=== PATIENT | male | born 1950 | race Caucasian/White ===

== ENCOUNTER 2018-08-14 07:33 | Inpatient (IN) | payer OTHER ==
[~2018-08-14] VITALS: Ht 182.9 cm; Wt 159.4 kg
[2018-08-14 07:45] VITALS: Ht 182.9 cm; Wt 159.4 kg
[2018-08-14 08:33] LABS: BASOPHIL % 0.7 % (0-2); PLATELET COUNT 217 x10^3mcL (130-400); RED CELL DISTRIBUTION WIDTH 13.9 % (11.5-14.5)
[2018-08-14 08:55] LABS: CALCIUM 8.7 mg/dL (8.5-10.1); CARBON DIOXIDE 25.2 mmol/L (21-32); CHLORIDE SERUM 102 mmol/L (98-107); CREATININE SERUM 0.9 mg/dL (0.7-1.3); GFR1 > 60 mL/min; GLUCOSE SERUM 126 mg/dL (74-106); POTASSIUM SERUM 3.9 mmol/L (3.5-5.1); SODIUM SERUM 136 mmol/L (136-145)
[2018-08-14 08:59] LABS: ALBUMIN 3.4 g/dL (3.4-5.0); ALKALINE PHOSPHATASE 66 U/L (46-116); ALT/SGPT 27 U/L (16-63); AST/SGOT 19 U/L (15-37); BILIRUBIN TOTAL 0.4 mg/dL (0.20-1.00); CHOLESTEROL 158 mg/dL (<200); HDL CHOLESTEROL 51 mg/dL (40-60); PHOSPHOROUS 2.8 mg/dL (2.5-4.9); TOTAL PROTEIN, SERUM 7.2 g/dL (6.4-8.2); URIC ACID 5.2 mg/dL (3.5-7.2)
[2018-08-14 10:51] LABS: microscopic required? NO
[2018-08-14 10:59] LABS: CHOLESTEROL/HDL RATIO 3.2; MAGNESIUM 1.9 mg/dL (1.8-2.4)
[2018-08-14 11:09] LABS: FREE T4 1.01 ng/dL (0.76-1.46); FREE THYROXINE INDEX 2.9 ug/dL (1.4-4.5); T4(THYROXINE) 8.8 ug/dL (4.7-13.3)
[2018-08-14 11:23] LABS: urine erythrocyte NEGATIVE (NEGATIVE)
[2018-08-14 12:30] LABS: T3 TOTAL 1.31 ng/mL
[2018-08-14 12:52] VITALS: BP 142/58
[2018-08-14 16:37] VITALS: BP 133/83
[2018-08-14 19:40] VITALS: BP 118/52
[2018-08-15 05:51] VITALS: BP 112/55
[2018-08-15 07:10] LABS: CALCIUM 8.8 mg/dL (8.5-10.1); CARBON DIOXIDE 26.6 mmol/L (21-32); CHLORIDE SERUM 104 mmol/L (98-107); CREATININE SERUM 0.9 mg/dL (0.7-1.3); GFR1 > 60 mL/min; GLUCOSE SERUM 120 mg/dL (74-106); MAGNESIUM 2.1 mg/dL (1.8-2.4); PHOSPHOROUS 3.4 mg/dL (2.5-4.9); POTASSIUM SERUM 4.2 mmol/L (3.5-5.1); SODIUM SERUM 137 mmol/L (136-145)
[2018-08-15 07:52] LABS: BASOPHIL % 0.6 % (0-2); PLATELET COUNT 204 x10^3mcL (130-400); RED CELL DISTRIBUTION WIDTH 14.7 % (11.5-14.5)
[2018-08-15 09:08] VITALS: BP 128/70
[2018-08-15 13:02] VITALS: BP 136/66
[2018-08-15 17:38] VITALS: BP 128/69
[2018-08-15 20:58] VITALS: BP 113/77
[2018-08-16 05:26] VITALS: BP 136/76
[2018-08-16 07:03] LABS: BASOPHIL % 0.5 % (0-2); PLATELET COUNT 210 x10^3mcL (130-400); RED CELL DISTRIBUTION WIDTH 14.6 % (11.5-14.5)
[2018-08-16 07:19] LABS: CALCIUM 8.9 mg/dL (8.5-10.1); CARBON DIOXIDE 28.2 mmol/L (21-32); CHLORIDE SERUM 103 mmol/L (98-107); GFR1 > 60 mL/min; GLUCOSE SERUM 110 mg/dL (74-106); MAGNESIUM 2.2 mg/dL (1.8-2.4); POTASSIUM SERUM 4.1 mmol/L (3.5-5.1); SODIUM SERUM 139 mmol/L (136-145)
[2018-08-16 08:41] VITALS: BP 109/58
[2018-08-16] MEDS ORDERED: ECO81 PO (10:51)
[2018-08-16] MEDS ORDERED: ATORVASTATIN CA40 M1 PO (10:51)
[2018-08-16] MEDS ORDERED: BG FS (10:53)
[2018-08-16] MEDS ORDERED: TYL325 PO (10:53)
[2018-08-16] MEDS ORDERED: HUMULIN R100 U/1 M1 SC (10:54)
[2018-08-16] MEDS ORDERED: DEXPF IV (10:54)
[2018-08-16] MEDS ORDERED: ZOFI IV (10:54)
[2018-08-16] MEDS ORDERED: HEP5I SC (10:54)
[2018-08-16 11:18] VITALS: BP 109/58
== END 2018-08-16 13:25 | disposition short-term general hospital (02) | DRG 65 ==
LOC: ED 07:33 → DU 10:03
PROVIDERS: Emergency Medicine; Internal Medicine
DX: I63.9 Cerebral infarction, unspecified (principal); Z68.41 Body mass index [BMI] 40.0-44.9, adult; E11.65 Type 2 diabetes mellitus with hyperglycemia; E66.01 Morbid (severe) obesity due to excess calories; H53.461 Homonymous bilateral field defects, right side; Z86.73 Personal history of transient ischemic attack (TIA), and cerebral infarction without residual deficits
CPT/HCPCS: 82962; 83880; 84439; J1644; J1885; Q0092

== ENCOUNTER → 2019-05-17 | Day surgery (SDC) | payer OTHER ==
[~2019-05-17] VITALS: Ht 182.9 cm; Wt 158.8 kg
[~2019-05-17] MED LIST: ATORVASTATIN CA40 M1 PO; BG FS; DEXPF IV; ECO81 PO; HEP5I SC; HUMULIN R100 U/1 M1 SC; TYL325 PO; ZOFI IV
[2019-05-17 09:13] VITALS: BP 122/68
[2019-05-17 10:38] VITALS: BP 100/53
== END | disposition home or self-care (01) ==
LOC: GI 09:00 → OR 12:00 → GI 12:00
DX: R19.5 Other fecal abnormalities (principal); K62.5 Hemorrhage of anus and rectum; K57.30 Diverticulosis of large intestine without perforation or abscess without bleeding; J45.909 Unspecified asthma, uncomplicated; E11.9 Type 2 diabetes mellitus without complications; Z90.49 Acquired absence of other specified parts of digestive tract; Z88.5 Allergy status to narcotic agent; Z79.84 Long term (current) use of oral hypoglycemic drugs; Z79.01 Long term (current) use of anticoagulants; Z79.899 Other long term (current) drug therapy; Z86.73 Personal history of transient ischemic attack (TIA), and cerebral infarction without residual deficits; Z98.890 Other specified postprocedural states
CPT/HCPCS: 45378; J1200; J1610; J2250; J2310; J3010; J3490

== ENCOUNTER 2019-09-11 11:55 | Inpatient (IN) | payer OTHER ==
[~2019-09-11] VITALS: Ht 182.9 cm; Wt 154.2 kg
[2019-09-11 12:09] VITALS: Ht 182.9 cm; Wt 154.2 kg
--- NOTE | 2019-09-11 12:25 | NUR ---
PT HERE BY AMBULANCE FROM HOME, PT STATES FELL AT 5AM DENIES HITTING HEAD. PT DENIES LOC, STATES FELT WEAK THIS AM AND FRIEND CALLED EMS TO BRING HIM TO HOSPITAL. BT WALKS BY CANE. DENIES ABD PAIN, STATES DRY COUGH STARTED MORNING. CLEAR BREATH SOUNDS NOTED
--- NOTE | 2019-09-11 12:53 | NUR ---
AWAITING LABS FOR BLOOD CULTURE TO BE DRAWN BEFORE ABX ADMINISTRATION
[2019-09-11 13:19] LABS: PLATELET COUNT 179 x10^3mcL (130-400)
--- NOTE | 2019-09-11 13:19 | NUR ---
PT GIVEN URINAL FOR SPECIMEN
[2019-09-11 13:35] LABS: CALCIUM 8.9 mg/dL (8.5-10.1); CARBON DIOXIDE 26.8 mmol/L (21-32); CHLORIDE SERUM 99 mmol/L (98-107); CREATININE SERUM 1.2 mg/dL (0.7-1.3); GFR1 > 60 mL/min; GLUCOSE SERUM 121 mg/dL (74-106); POTASSIUM SERUM 3.8 mmol/L (3.5-5.1); SODIUM SERUM 136 mmol/L (136-145)
[2019-09-11 13:43] LABS: RED CELL DISTRIBUTION WIDTH 14.6 % (11.5-14.5)
[2019-09-11 14:43] LABS: UA SPECIFIC GRAVITY 1.015 (1.005-1.035); microscopic required? YES; urine erythrocyte 2+ (NEGATIVE)
[2019-09-11 14:46] LABS: BAND NEUTROPHIL 3 % (0-10); BASOPHIL 0 % (0-2); MONOCYTE 5 % (0-7); SEGMENTED NEUTROPHILS 88 % (37-75)
[2019-09-11 14:47] LABS: rbc morphology (normal/abnorm) ABNORMAL (NORMAL)
[2019-09-11] MEDS ORDERED: METFORMIN HYDR500 M1 (15:44)
--- NOTE | 2019-09-11 15:44 | NUR ---
PT STATES METFORMIN USE AT HOME BUT OTHER MEDS UNKNOWN
--- NOTE | 2019-09-11 15:44 | NUR ---
PT GIVEN SANDWICH PER DR DELGADO TO GIVE. BROTHER AT BEDSIDE. PT ANSWERING QUESTIONS TO MED STUDENTS. AWAKE, ALERT AND ORIENTED, TALKING FULL SENTENCES
--- NOTE | 2019-09-11 16:00 | NUR ---
REPORT GIVEN TO GILSON ADAMS TO RESUME CARE OF PT
[2019-09-11 16:01] LABS: MAGNESIUM 1.8 mg/dL (1.8-2.4); PHOSPHOROUS 2.2 mg/dL (2.5-4.9)
--- NOTE | 2019-09-11 16:34 | NUR ---
RECEIVED PT VIA GURNEY FROM E/D, ACCOMPANIED BY RN AND 2 TRANSPORTERS. 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 ON TELE # 6, ST, HR 101, DENIES CHEST PAIN OR DISCOMFORT AT THIS TIME. NEVAEH RADIAL AND PEDAL PULSES PRESENT, LLE NON-PITTING EDEMA +3 AND RUBOR THAT RUNS FROM TOP OF ANKLE JOINT TO 3/4 UP OF THOMAS, SALES REPRESENTATIVE ADVERTISING, CAP REFILL < 3 SECS, SCD BY BEDSIDE. LUNGS CTAB, CHEST RISING EVENLY, R/A, 98%, C/O DRY COUGH. UA +FEW BACTERIA AND BLOOD, C/O DARK YELLOW URINE, DENIES DYSURIA. GENERALIZED WEAKNESS, AMB W/ CANE @ BASELINE, BEDBOUND @ THIS TIME, FELL 09/11/19, FALL RISK PROTOCOL IN PLACE. ALSO NOTED EXCESSIVE MOISTURE AND DISCOLORATION TO NEVAEH ABD FOLDS, APPLIED ZNO FOR SKIN MGMT. IV SITE RH 22G, CDI. ORIENTED PT TO ROOM, BED CONTROLS, CALL LIGHT SYSTEM. SIDE RAILS UP X 2, BED IN LOW POSITION. WILL ENDORSE TO ANGIE TEJADA.
[2019-09-11 17:00] LABS: CHOLESTEROL/HDL RATIO 1.6
[2019-09-11 17:16] VITALS: BP 132/62
[2019-09-11] MEDS ORDERED: LIPI10 PO (17:48)
[2019-09-11] MEDS ORDERED: FERROUS SULFAT325 M2 PO (17:48)
[2019-09-11] MEDS ORDERED: ELIQUIS5 MG PO (17:48)
[2019-09-11] MEDS ORDERED: METFORMIN HYDR500 M1 PO (17:49)
[2019-09-11 17:54] VITALS: BP 132/62
[2019-09-11 18:17] LABS: AMPHETAMINE QUAL UR NONE DETECTED (See below)
--- NOTE | 2019-09-11 18:30 | NUR ---
ALL ORDERS REVIEWED, IMPLEMENTED, AND CARRIED OUT. PATIENT IN STABLE CONDITION. NO SIGNS OF DISTRESS. WILL ENDORSE TO UTILITY AIRCREWMAN RN.
--- NOTE | 2019-09-11 19:35 | NUR ---
RECEIVED PT RESTING IN BED, PT OBESE. AOX4, DENIES WALKER/DIZZINESS. PT TELE # 6, SR, DENIES CP. PT WITH 2+ PITTING EDEMA BLE, L>R, ERYTHEMA NOTED. LLE TRACED PT MONITOR FOR SPREADING. ELEVATED ON PILLOW. PT DENIES KNOWING HOW LONG THIS HAS BEEN GOING ON. PT REPORTS RESIDUAL BLINDNESS. RESP EVEN AND UNLABORED ON RA, DENIES SOB. ABD SOFT, ROUND, DENIES ABD PAIN. BSC AT BEDSIDE IN CASE PT NEEDS IT. PT S/P FALL AT HOME, DENIES HITTING HEAD. PT WITH URINAL AT BEDSIDE. GENERALIZED WEAKNESS, AMB W/ CANE AT BEDSIDE. DENIES PAIN AT THIS TIME. IV SITE TO THE RT HAND PATENT, NO REDNESS, SWELLING OR PAIN NOTED. PT TOLERATING ANTIBIOTICS WELL. CALL LIGHT WITHIN REACH, BED IN LOWEST POSITION, WILL CONTINUE TO MONITOR.
[2019-09-11 19:45] VITALS: BP 97/51
--- NOTE | 2019-09-11 20:30 | NUR ---
COLLABORATED WITH RESIDENT IN REGARDS TO PT ORDERED TO RECEIVE FLU AND PNA VACCINE ALTHOUGH PT DX SEVERE SEPSIS AND WBC'S SIGNIFICANTLY ELEVATED W/ FEVER, HYPOTENSION, TACHYCARDIA. PER RESIDENT, WILL PUT ORDER IN FOR INFLUENZA A & B LAB AND IF PT IS (+), TREATMENT WILL BEGIN. INFORMED PT IT IS NOT RECOMMENDED TO RECEIVE THE VACCINES WHEN SICK, PT VERBALIZES UNDESTANDING AND INFORMED HIM HE CAN REQUEST UPON DISCHARGE. PT VERBALIZES UNDERSTANDING AND WILL ENDORSE TO DAYSHIFT NURSE. CALL LIGHT WITHIN REACH, BED IN LOWEST POSITION, WILL CONTINUE TO MONITOR.
[2019-09-11 23:20] VITALS: BP 122/53
--- NOTE | 2019-09-12 | NUR ---
INQUIRED WITH RESIDENT IN REGARDS TO PT DIET ORDERED TO BEGIN 09/12/19 FOR DINNER, WELL IT WAS ORDERED A "CAUTION TRAY", PER RESIDENT WILL COLLABORATE WITH RONALD MANAGER ENVIRONMENTAL IN REGARDS TO THE NEED FOR THIS ORDER OR IF PT CAN HAVE NORMAL BREAKFAST. ALSO, PT D-DIMER ELEVATED= 802, NO MENTION IN THE H & P, PER RESIDENT, WILL INQUIRE WITH RONALD MANAGER ENVIRONMENTAL IF ANY OTHER TESTING IS NEEDED FOR THIS FINDING. WILL ENDORSE TO DAYSORFT NURSE.
[2019-09-12 06:34] LABS: PLATELET COUNT 161 x10^3mcL (130-400)
[2019-09-12 06:43] LABS: BASOPHIL % 0 % (0-2); RED CELL DISTRIBUTION WIDTH 15.3 % (11.5-14.5)
[2019-09-12 06:49] VITALS: BP 135/58
[2019-09-12 06:51] LABS: CALCIUM 8.3 mg/dL (8.5-10.1); CARBON DIOXIDE 24.6 mmol/L (21-32); CHLORIDE SERUM 101 mmol/L (98-107); CREATININE SERUM 1.2 mg/dL (0.7-1.3); GFR1 > 60 mL/min; GLUCOSE SERUM 118 mg/dL (74-106); POTASSIUM SERUM 3.6 mmol/L (3.5-5.1); SODIUM SERUM 135 mmol/L (136-145)
--- NOTE | 2019-09-12 07:10 | NUR ---
RECEIVED BEDSIDE REPORT FROM FOREIGN LANGUAGE PROFESSOR NURSE AT THIS TIME. PATIENT RESTING COMFORTABLY IN BED. NO APPARENT DISTRESS OR DISCOMFORT NOTED. PATIENT BREATHING EVEN AND UNLABORED. NO RESPIRATORY DISTRESS NOTED. PATIENT DENIES CHEST PAIN/PRESSURE AT THIS TIME. IV PATENT AND INTACT. ALL QUESTIONS AND CONCERNS ADDRESSED. ALL NEEDS ATTENDED TO. WILL CONTINUE TO MONITOR
--- NOTE | 2019-09-12 07:25 | NUR ---
pt put on bedpan by VISUAL EDUCATION DIRECTOR for BM, pt reports possibly it was a false alarm, will retry later. call light within reach, bed in lowest position, endorsed all care to dayshift nurse.
[2019-09-12 08:53] VITALS: BP 136/63
--- NOTE | 2019-09-12 10:06 | NUR ---
ALL MORNING MEDICATIONS ADMINISTERED. PATIENT TOLERATED MEDICATIONS WELL. NO APPARENT ADVERSE EFFECCTS NOTED. ALL NEEDS ATTENDED TO. WILL CONTINUE TO MONITOR
--- NOTE | 2019-09-12 11:50 | NUR ---
PATIENT BLOOD SUGAR IS 138 AT THIS TIME. NO INSULIN COVERAGE REQUIRED. ALL NEEDS ATTENDED TO. WILL CONTINUE TO MONITOR
--- NOTE | 2019-09-12 13:00 | NUR ---
PATIENT SITTING UP IN BED EATING LUNCH AT THIS TIME. PATIENT TOLERATING DIET WELL. NO APPARENT DISTRESS OR DISCOMFORT NOTED. ALL NEEDS ATTENDED TO. WILL CONTINUE TO MONITOR
--- NOTE | 2019-09-12 16:40 | NUR ---
PATIENT BLOOD SUGAR 132 AT THIS TIME. NO INSULIN COVERAGE REQUIRED. ALL NEEDS ATTENDED TO. WILL CONTINUE TO MONITOR
[2019-09-12 16:44] VITALS: BP 128/68
--- NOTE | 2019-09-12 18:00 | NUR ---
PATIENT SITTING UP IN BED EATING DINNER AT THIS TIME. PATIENT TOLERATING DIET WELL. NO APPARENT DISTRESS OR DISCOMFORT NOTED. ALL NEEDS ATTENDED TO. WILL CONTINUE TO MONITOR.
--- NOTE | 2019-09-12 19:45 | NUR ---
PATIENT RESTING COMFORTABLY IN BED. NO APPARENT DISTRESS OR DISCOMFORT NOTED. BREATHING EVEN AND UNLABORED. NO RESPIRATORY DISTRESS OR DISCOMFORT NOTED. PATIENT DENIES SHORTNESS OF BREATH OR CHEST PAIN/PRESSURE. IV PATENT AND INTACT. ALL QUESTIONS AND CONCERNS ADDRESSED. ALL NEEDS ATTENDED TO. WILL CONTINUE TO MONITOR
--- NOTE | 2019-09-12 21:00 | NUR ---
PATIENT BLOOD SUGAR 136 AT THIS TIME. NO INSULIN COVERAGE REQUIRED AT THIS TIME. ALL NEEDS ATTENDED TO. WILL CONTINUE TO MONITOR
--- NOTE | 2019-09-12 21:30 | NUR ---
ALL MEDICATIONS ADMINISTERED. PATIENT TOLERATED MEDICATIONS WELL. NO APPARENT ADVERSE EFFECTS NOTED. ALL NEEDS ATTENDED TO. WILL CONTINUE TO MONITOR.
[2019-09-12 22:04] VITALS: BP 110/55
--- NOTE | 2019-09-12 22:51 | NUR ---
PATIENT RESTING COMFORTABLY IN BED AT THIS TIME. NO APPARENT DISTRESS OR DISCOMFORT NOTED. IV PATENT AND INTACT. ALL QUESTIONS AND CONCERNS ADDRESSED. ALL NEEDS ATTENDED TO. SAFETY PRECAUTIONS MAINTAINED. WILL ENDORSE ALL CARE TO ONCOMING NURSE
--- NOTE | 2019-09-12 23:21 | NUR ---
REPORT TAKEN FROM MEAT PUMPER NURSE AT THE BEDSIDE, PATIENT RESTING WITH EYES CLOSED AT THIS TIME, CHEST RISE AND FALL OBSERVED, BREATHING EQUAL AND UNLABORED, WILL CONTINUE TO MONITOR.
[2019-09-13 05:16] VITALS: BP 114/55
[2019-09-13 06:31] LABS: BASOPHIL % 0.4 % (0-2); PLATELET COUNT 149 x10^3mcL (130-400)
[2019-09-13 06:48] LABS: RED CELL DISTRIBUTION WIDTH 14.9 % (11.5-14.5)
--- NOTE | 2019-09-13 07:20 | NUR ---
RECEIVED PATIENT AWAKE/ALERT IN BED, NO DISTRESS NOTED. TELE #6 SR WITH HR 86 NOTED. DENIES PAIN. IV TO RH INTACT AND INFUSING WELL. POC EXPLAINED. CALL LIGHT WITHIN REACH.
[2019-09-13 07:28] LABS: CARBON DIOXIDE 25.1 mmol/L (21-32); CHLORIDE SERUM 102 mmol/L (98-107); GFR1 > 60 mL/min; GLUCOSE SERUM 133 mg/dL (74-106); POTASSIUM SERUM 3.6 mmol/L (3.5-5.1); SODIUM SERUM 134 mmol/L (136-145)
--- NOTE | 2019-09-13 07:45 | NUR ---
REPORT GIVEN TO DAY SHIFT NURSE, CARE ENDORSED
[2019-09-13 08:45] VITALS: BP 125/57
--- NOTE | 2019-09-13 09:09 | NUR ---
PATIENT RESTING IN BED ON BEDPAN, HAS LARGE SOFT BM, JACQUELYN CARE PROVIDED. INFORM PATIENT PER TELE GROUT SEWER LINE REPAIRER PATIENT NEED TO GET OOB MORE OFTEN, UP IN CHAIR WITH EACH MEALS. NO MORE BEDPAN. PO MEDS ADMINISTERED. PATIENT TOLERATED. CONT TO MONITOR.
--- NOTE | 2019-09-13 09:53 | NUR ---
PATIENT AMBULATE IN HALLWAY WITH PT USING WALKER, PER PT PATIENT AMBULATE 150 FT. SIT IN CHAIR AT THIS TIME. TELE #6 REMOVED AND RETURN TO [facility].
--- NOTE | 2019-09-13 10:26 | NUR ---
SEEN PATIENT AOX4, COHERENT RESPONSIVE, NOT IN DISTRESS. DIMINISHED BLF, REGULAR RATE AND RHYTHM, PALPABLE PULSES, HAM STRINGER<2, LIMITED MOBILITY, +2 LLE , +1 RLE, ERYTHEMA ON LL. ABLE TO VOID , + BS, NO PAIN AT THIS TIME. IV INTACT AND PATENT. NO REDNESS OR INFILTRATION. CALL LIGHT WITHIN REACH . BED AT LOWEST POSITION.
--- NOTE | 2019-09-13 11:57 | NUR ---
SEEN SITTING ON BED AOX4, NO SUBJECTIVE COMPLAINTS, DIABETIC TEACHING GIVEN. ACCUCHECK DONE WITH CBG 135. NO INSULIN REQUIRED. CALL LIGHT WITHIN REACH. BED AT LOWEST POSITION.
--- NOTE | 2019-09-13 12:22 | NUR ---
SEEN SITTING AOX4, NOT IN DISTRESS, NO SUBJECTIVE COMPLAINTS, PIPERACILLIN TAZOBACTAM IVPB INFUSING WELL AT 100CC/HR. NO REDNESS OR INFILTRATION. CALL LIGHT WITHIN REACH. BED AT LOWEST POSITION.
[2019-09-13 12:52] VITALS: BP 119/61
--- NOTE | 2019-09-13 13:06 | NUR ---
SEEN PATIENT SITTING, NOT IN DISTRESS, NO SUBJECTIVE COMPLAINTS. IV INTACT AND PATENT, INFUSING WELL. VANCOCIN AT 200CC/HR GIVEN. NO REDNESS OR INFILTRATION. CALL LIGHT WITHIN REACH.
--- NOTE | 2019-09-13 17:44 | NUR ---
SEEN LYING AOX4, NOT IN DISTRESS, NO SUBJECTIVE COMPLAINTS OF PAIN. DIMINISHED LUNG SOUNDS BILATERALLY, LLE EDEMA +2, RLE EDEMA +1, NSR, IV PATENT AND INTACT. NO REDNESS OR INFILTRATION. VOIDED WITH NO DYSURIA, LAST BM 09/13/19 PIPERACILLIN TAZOBACTAM IVPB GIVEN. INFUSING WELL. CALL LIGHT WITHIN REACH. BED AT LOWESTT POSITION.
[2019-09-13 18:01] VITALS: BP 128/64
--- NOTE | 2019-09-13 19:48 | NUR ---
PT SEEN, RESTING IN BED, ALERT AND ORIENTED, DENIES HEADACHE OR DIZZINESS, BREATHING EVEN AND UNLABORED, LUNG SOUNDS CLEAR BUT DIMINISHED AT BASE, ON ROOM AIR WITH NO RESP DISTRESS NOTED, MEDSURG PT, DENIES CHEST PAIN, PULSES PALPABLE, EDEMA NOTED TO BLE, GENERALIZED WEAKNESS, AMBULATORY WITH ASSIT, ABD OBESE WITH ACTIVE BS, NO BM AT THIS TIME, VOIDING FREELY, ERYTHEMA TO LLE, NO DISTRESS NOTED, WILL KEEP TO MONITOR.
[2019-09-13 21:32] VITALS: BP 118/50
--- NOTE | 2019-09-14 05:57 | NUR ---
PT AWAKE AND UP IN THE CHAIR AT THIS TIME, SLEPT ON AND OFF WHOLE NIGHT, MORNING BLOOD SUGAR:141 MG/DL WITH NO RISS, IVF INFUSING WITH ABX AT THIS TIME, LLE STILL WITH SLIGHT ERYTHEMA, CONDITION NO CHANGE, NO DISTRESS NOTED, WILL KEEP TO MONITOR.
[2019-09-14 06:30] VITALS: BP 125/70
[2019-09-14 07:00] LABS: BASOPHIL % 0.4 % (0-2); PLATELET COUNT 193 x10^3mcL (130-400)
[2019-09-14 07:06] LABS: RED CELL DISTRIBUTION WIDTH 14.8 % (11.5-14.5)
[2019-09-14 07:09] LABS: CALCIUM 8.5 mg/dL (8.5-10.1); CARBON DIOXIDE 26.2 mmol/L (21-32); CHLORIDE SERUM 103 mmol/L (98-107); GFR1 > 60 mL/min; GLUCOSE SERUM 119 mg/dL (74-106); POTASSIUM SERUM 3.9 mmol/L (3.5-5.1); SODIUM SERUM 138 mmol/L (136-145)
--- NOTE | 2019-09-14 07:20 | NUR ---
SEEN IN BED AAOX4. NO RESP DISTRESS NOTED. DENIES PAIN. 2+EDEMA TO BLE, SKIN MARKED REDNESS SUBSIDED, KEPT ELEVATED ON PILLOWS. ON VANCOMYCIN AND ZOSYN. IV ACCESS TO RT HAND INTACT AND PATENT. CALL LIGHT REINSTRUCTED AND PLACED WITHIN EASY REACH. SIDERAILS UP X2.
--- NOTE | 2019-09-14 07:23 | NUR ---
BEDSIDE HANDOFF REPORT GIVEN TO SUPIN-RN, ALL QUESTIONS ANSWERED AND CONCERNS ADDRESSED.
--- NOTE | 2019-09-14 08:30 | NUR ---
SEEN GETTING UP WALKING ASSISTED BY PHYSICAL THERAPIST. NO ANY DISTRESS NOTED.
[2019-09-14 08:42] VITALS: BP 135/71
[2019-09-14] MEDS ORDERED: CLEOCIN HCL300 MG PO (10:16)
[2019-09-14] MEDS ORDERED: BD LACTINEX1.4 MG PO (10:16)
[2019-09-14 10:40] VITALS: BP 135/71
--- NOTE | 2019-09-14 11:31 | NUR ---
PATIENT MADE AWARE OF DISCHARGE HOME TODAY.
--- NOTE | 2019-09-14 12:15 | NUR ---
STATED HIS FAMILY MEMBER WILL PICK HIM UP AROUND 2PM. CA=193. DENIES PAIN AT THIS TIME.
--- NOTE | 2019-09-14 13:48 | NUR ---
DISCHARGE INSTRUCTION GIVEN TO PATIENT WHO IS AWAKE,ALERT, ORIENTED X4. DENIES PAIN OR DISCOMFORT AT THIS TIME. STATED FINISHED ALL THE LUNCH EXCEPT SALAD. PATIENT IS GETTING DRESSED, REFUSED ASSISTANCE AT THIS TIME. AWAITING FOR HIS BROTHER TO PICK HIM UP.
--- NOTE | 2019-09-14 14:36 | NUR ---
PHYSICAL THERAPY DAILY NOTES CO-SIGN All documentation done by the Pharmacy Tech Customer Service for 09/14/19 has been reviewed. I agree with the documentation. Reviewed/Co-Signed by: Ramonita Buchanan PT Documentation Done by:PHOENIX FERRER PTA
--- NOTE | 2019-09-14 15:10 | NUR ---
DISCHARGE INSTRUCTION GIVEN TO PATIENT WHO IS AWAKE, ALERT, ORIENTED X4. S/L TO RT HAND REMOVED WITH CATHETER INTACT, DRSG APPLIED. ALL PERSONAL BELONGINGS KEPT WITH PATIENT. BROUGHT VIA WHEELCHAIR ASSISTED BY FRESH WORK WRAPPER LAYER. CONDITION STABLE UPON DISCHARGE.
== END 2019-09-14 15:10 | disposition home or self-care (01) | DRG 872 ==
LOC: ED 11:55 → DU 15:16 → MU 09-13 12:56
PROVIDERS: Internal Medicine; Student in an Organized Health Care Education/Training Program; ADMIT Internal Medicine
DX: A41.9 Sepsis, unspecified organism (principal); L03.116 Cellulitis of left lower limb; Z68.42 Body mass index [BMI] 45.0-49.9, adult; R65.20 Severe sepsis without septic shock; I69.398 Other sequelae of cerebral infarction; I69.312 Visuospatial deficit and spatial neglect following cerebral infarction; E11.65 Type 2 diabetes mellitus with hyperglycemia; E78.5 Hyperlipidemia, unspecified; J45.909 Unspecified asthma, uncomplicated; E66.01 Morbid (severe) obesity due to excess calories; Z88.5 Allergy status to narcotic agent; Z86.73 Personal history of transient ischemic attack (TIA), and cerebral infarction without residual deficits; Z79.82 Long term (current) use of aspirin; Z79.4 Long term (current) use of insulin
CPT/HCPCS: 82962; 85378; 87804; 90658; 90732; 97116-GP; 97530-GP; G0378; J0696; J2543; J3370; J7030; J7060; Q0092

== ENCOUNTER 2019-10-05 17:43 | Inpatient (IN) | payer OTHER ==
[~2019-10-05] VITALS: Ht 182.9 cm; Wt 154.2 kg
[~2019-10-05 17:43] MED LIST changes: +BD LACTINEX1.4 MG PO; +CLEOCIN HCL300 MG PO; +ELIQUIS5 MG PO; +FERROUS SULFAT325 M2 PO; +LIPI10 PO; +METFORMIN HYDR500 M1; +METFORMIN HYDR500 M1 PO
[2019-10-05 17:53] VITALS: Ht 182.9 cm; Wt 154.2 kg
--- NOTE | 2019-10-05 18:04 | NUR ---
PER PT STS THAT HE HAS RT LOWER LEG SWELLING WEDNESDAY. STS THAT HE WENT TO PCP AND RT LG SWELLING HAS DECREASED IN PAIN WITH ANTIBITOICS FROM DOCTOR. PER PT STS THAT WHEN HE WAS PHYSCAL THERAPY AND NOTICED THE BOTTOM OF HIS RT FOOT "FELT SPONGY". PT STS THAT BLISTER STARTED AT 1530 TODAY, AND INSTRUCTD IF "OPENED" TO COME TO ED. PT STS THAT HE FEELS THAT HE HAS CHILLS AND BODYACHES. NOTED SWELLING/BLISTERS TO RT LOWER LEG. +CAP REFILL NOTED TO NEVAEH LOWER EXTREMITIES. PT IS AAOX4. RESP E/U. WILL CONTINUE TO MONITOR. PT STS THAT HE HAD LEFT LOWER LEG CELLULITIS IN SEPTEMBER.
--- NOTE | 2019-10-05 18:50 | NUR ---
NO FURTHER ORDERS AT THIS TIME. VSS. RESP E/U. WILL CONTINUE TO MONITOR.
--- NOTE | 2019-10-05 19:10 | NUR ---
REPORT GIVEN TO KENDALL ADAMS TO ASSUME CARE OF PT.
--- NOTE | 2019-10-05 19:10 | NUR ---
RECEIVED PT FROM AM NURSE, PT SEEN, RESTING IN BED WITHOUT ANY DISTRESS NOTED.
--- NOTE | 2019-10-05 20:00 | NUR ---
DR CHANEL AT BEDSIDE EVAL PT.
[2019-10-05 20:11] LABS: BASOPHIL % 0.3 % (0-2); PLATELET COUNT 224 x10^3mcL (130-400)
[2019-10-05 20:13] LABS: RED CELL DISTRIBUTION WIDTH 14.8 % (11.5-14.5)
[2019-10-05 20:17] LABS: C REACTIVE PROTEIN 7.5 mg/dL (<=0.9); CALCIUM 9.5 mg/dL (8.5-10.1); CARBON DIOXIDE 28.1 mmol/L (21-32); CHLORIDE SERUM 96 mmol/L (98-107); GFR1 > 60 mL/min; GLUCOSE SERUM 107 mg/dL (74-106); POTASSIUM SERUM 3.5 mmol/L (3.5-5.1); SODIUM SERUM 132 mmol/L (136-145)
[2019-10-05] MEDS ORDERED: METFORMIN HCL1000 MG PO (21:47)
--- NOTE | 2019-10-05 22:41 | NUR ---
DR SELLERS AT BEDSIDE AND STEPHANIE PT.
[2019-10-05 22:54] LABS: UA SPECIFIC GRAVITY >=1.030 (1.005-1.035); microscopic required? YES; urine erythrocyte 3+ (NEGATIVE)
--- NOTE | 2019-10-05 23:11 | NUR ---
REPORT GIVEN TO YOLANDA, ALL QUESTIONS ANSWERED AND CONCERNS ADDRESSED.
[2019-10-05 23:18] LABS: AMPHETAMINE QUAL UR NONE DETECTED (See below)
--- NOTE | 2019-10-05 23:26 | NUR ---
RECEIVED PT VIA GURNEY FROM E/D, ACCOMPANIED BY TRANSPORTER. 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 PT W/ GENERALIZED WEAKNESS, AMB W/ CANE (BY BEDSIDE), FELL 09/2019, FALL RISK PROTOCOL IN PLACE. DENIES CHEST PAIN OR DISCOMFORT AT THIS TIME. NEVAEH RADIAL AND L PEDAL PULSE PRESENT, R PEDAL PULSE WEAK, CIRCUMFERENTIAL CELLULITIS NOTED TO RLE W/ RUBOR AND YELLOW DRAINAGE, +3 PITTING, DHRUV, CAP REFILL < 3 SECS, SCD BY BEDSIDE. IV SITE LFA 22G, CDI. ORIENTED PT TO ROOM, BED CONTROLS, CALL LIGHT SYSTEM. SIDE RAILS UP X 2, BED IN LOW POSITION. WILL ENDORSE TO ANGIE FALCON.
--- NOTE | 2019-10-05 23:40 | NUR ---
REPORT RECEIVED FROM ANGIE RIGGINS. PATIENT WAS SEEN RESTING IN BED COMFORTABLY. NO DISTRESS NOTED. BREATHING EVEN AND UNLABORED ON ROOM AIR. NO SOB NOTED. DENIES CHEST PAIN/PRESSURE. MED-SURG PATIENT. RLE CELLULITIS WITH ERYTHEMA AND 3+ EDEMA. SMALL OPEN BLISTER NOTED TO THE INNER ANKLE DRAINING MINIMAL YELLOW DRAINAGE. MILD FOUL ODOR. WOULD CX COLLECT TO RIGHT INNER ANKLE. DENIES PAIN. IV TO THE LFA, 22G. PATENT AND INTACT. NO REDNESS OR SWELLING NOTED. COMFORT AND SAFETY MEASURES IN PLACE. BED IS LOCKED AND IN LOWEST POSITION. SIDE RAILS UP X2. CALL LIGHT IS WITHIN REACH. WILL CONTINUE TO MONITOR.
[2019-10-05 23:41] LABS: CHOLESTEROL/HDL RATIO 2.8
[2019-10-06 00:03] VITALS: BP 135/58
--- NOTE | 2019-10-06 03:06 | NUR ---
RESTING IN BED WITH EYES CLOSED. NO APPARRENT DISTRESS NOTED. BREATHING EVEN AND UNLABORED ON ROOM AIR. NO SOB NOTED. SAFETY MEASURES IN PLACE. CALL LIGHT IS WITHIN REACH. WILL CONTINUE TO MONITOR
[2019-10-06 05:08] VITALS: BP 98/45
[2019-10-06 06:15] LABS: BASOPHIL % 0.9 % (0-2); PLATELET COUNT 206 x10^3mcL (130-400)
--- NOTE | 2019-10-06 06:36 | NUR ---
RESTING IN LONG INTERVALS THROUGHOUT THE NIGHT. NO ACUTE CHANGES NOTED. NO DISTRESS NOTED. BREATHING EVEN AND UNLABORED ON ROOM AIR. NO SOB NOTED. NO C/O PAIN THROUGHOUT THE NIGHT. DENIES PAIN. IV TO THE LFA INFUSING WELL. PATENT AND INTACT. RLE CELLULITIS WITH OPEN BLISTER TO RIGHT INNER ANKLE. MINIMAL DRAINAGE NOTED. CASINO SHIFT MANAGER. ALL NEEDS AND CONCERNS ADDRESSED. SAFETY MEASURES IN PLACE. CALL LIGHT IS WITHIN REACH. WILL ENDORSE CARE TO DAY SHIFT RN
[2019-10-06 06:41] LABS: CALCIUM 9.5 mg/dL (8.5-10.1); CARBON DIOXIDE 31.3 mmol/L (21-32); CHLORIDE SERUM 99 mmol/L (98-107); GFR1 > 60 mL/min; GLUCOSE SERUM 107 mg/dL (74-106); PHOSPHOROUS 4.4 mg/dL (2.5-4.9); POTASSIUM SERUM 4.2 mmol/L (3.5-5.1); SODIUM SERUM 136 mmol/L (136-145)
--- NOTE | 2019-10-06 08:00 | NUR ---
RECEIVED PATIENT FROM ANGIE AGUSTIN. PATIENT OBSERVED SEATED UP TO BED, EATING BREAKFAST TRAY AND TOLERATING. SPOKE WITH PATIENT ABOUT WAITING FOR CARE TEAM TO COME SPEAK WITH PATIENT, AND PATIENT AGREES. R LEG CELLULITIS IMPROVED, LESS SWELLING NOTED FROM PREVIOUS MARKINGS. WILL WAIT FOR CARE TEAM TO COME SPEAK WITH PATIENT. CALL LIGHT IN REACH AT THIS TIME, PATIENT AWARE TO CALL FOR ASSISTANCE WHEN AMBULATING.
[2019-10-06 08:23] VITALS: BP 119/64
[2019-10-06 12:11] VITALS: BP 125/61
[2019-10-06 16:25] VITALS: BP 117/64
--- NOTE | 2019-10-06 19:30 | NUR ---
PT RECIEVED FROM DAY NURSE. PT RESTING IN BED AT THIS TIME. DENIES PAIN OR DISCOMFORT. A/O X4, CALM AND COOPERATIVE AT THIS TIME. PT MS, DENIES CP, NV, DIZZINESS, OR PALPATATIONS. PALPABLE PULSES, WEAKER IN RLE. EDEMA NOTED TO RLE. EXTREMITY ELEVATED WITH PILLOWS. BREATHING E/U ON RA. DENIES SOB AT THIS TIME. ABD SOFT AND ROUND, DENIES PAIN TO PALPATION. GENERALIZED WEAKNESS, AMBULATES WITH CANE AT HOME. IV TO LFA, CDI. BED AT LOWEST POSITION. CALL LIGHT WITHIN REACH. WILL CONTINUE TO MONITOR.
--- NOTE | 2019-10-06 19:30 | NUR ---
PT RECIEVED FROM DAY NURSE. PT RESTING IN BED AT THIS TIME. DENIES PAIN OR DISCOMFORT. FAMILY AT BEDSIDE. TELE 23, SR WITH DEPRESSED T. PT DENIES CP, NV, DIZZINESS, AND PALPATATIONS. PALPABLE PULSES, NO EDEMA NOTED AT THIS TIME. BREATHING E/U ON RA AT THIS TIME. DENIES SOB. ABD SOFT AND ROUND, DENIES PAIN TO PALPATION. PT AMBULATORY WITH ASSIST, GEN WEAKNESS. IV TO LAC, CDI. BED AT LOWEST POSITION. CALL LIGHT WITHIN REACH. WILL CONTINUE TO MONITOR.
[2019-10-06 20:24] VITALS: BP 103/53
--- NOTE | 2019-10-07 | NUR ---
PT RESTING IN BED AT THIS TIME. NO S/S OF PAIN OR DISCOMFORT. BREATHING E/U ON RA. NO SIGNS OF ACUTE DISTRESS AT THIS TIME. WILL CONTINUE TO MONITOR.
[2019-10-07 06:16] VITALS: BP 116/60
--- NOTE | 2019-10-07 06:39 | NUR ---
PT RESTING AT SIDE OF BED AT THIS TIME. DENIES PAIN OR DISCOMFORT. BREATHING E/U AT THIS TIME. NO SIGNS OF ACUTE DISTRESS NOTED. ALL NEEDS AND CONCERNS ADDRESSED THIS SHIFT. CALL LIGHT WITHIN REACH. WILL ENDORSE TO DAY NURSE.
[2019-10-07 06:43] LABS: BASOPHIL % 0.5 % (0-2); PLATELET COUNT 214 x10^3mcL (130-400)
[2019-10-07 06:50] LABS: CALCIUM 9.1 mg/dL (8.5-10.1); CARBON DIOXIDE 33.1 mmol/L (21-32); CHLORIDE SERUM 100 mmol/L (98-107); GFR1 > 60 mL/min; GLUCOSE SERUM 106 mg/dL (74-106); MAGNESIUM 2.1 mg/dL (1.8-2.4); PHOSPHOROUS 3.7 mg/dL (2.5-4.9); POTASSIUM SERUM 4.1 mmol/L (3.5-5.1); SODIUM SERUM 137 mmol/L (136-145)
[2019-10-07 07:04] LABS: RED CELL DISTRIBUTION WIDTH 14.7 % (11.5-14.5)
--- NOTE | 2019-10-07 07:40 | NUR ---
RECEIVED PT FROM ADULT BASIC EDUCATION MANAGER RN. Mohsen/SAURABH. MED SURG. DENIES CHEST PAIN/PRESSURE. RESPIRATIONS EQUAL AND UNLABORED ON RA. DENIES SOB. PT DENIES ANY N/V. PT DENIES ANY PAIN AT THIS TIME. RIGHT LEG ERYTHEMA NOTED, DHRUV, BLISTER DRAINING MINIMAL SEROUS DRAINAGE FROM RIGHT ANKLE. IV TO LFA FLUSHED WELL. NO REDNESS OR SWELLING NOTED. EMPTIED 850ML OF CLEAR YELLOW URINE FROM URINAL. WILL CONTINUE TO MONITOR. CALL LIGHT IN REACH. BED IN LOWEST POSITION.
[2019-10-07 08:17] VITALS: BP 119/68
--- NOTE | 2019-10-07 09:03 | NUR ---
PT SITTING UP IN CHAIR AT BEDSIDE. NO ACUTE RESP DISTRESS NOTED ON RA. PT DENIES ANY PAIN AT THIS TIME. GIVEN PO MEDS. TOLERATED WELL. PT ASKING TO HAVE ZOFRAN PRIOR TO VANCO. MEDICATED PER EMAR. IV TO LFA FLUSHED WELL. NO REDNESS OR SWELLING NOTED. IV ANTIBIOTIC INFUSING ORDERED. EMPTIED 320 ML OF CLEAR YELLOW URINE FROM URINAL. WILL CONTINUE TO MONITOR. CALL LIGHT IN REACH. BED IN LOWEST POSITION.
[2019-10-07 11:33] VITALS: BP 130/74
[2019-10-07 16:59] VITALS: BP 166/86
--- NOTE | 2019-10-07 19:25 | NUR ---
ENDORSED CARE TO TIGIST MECHANICAL ASSEMBLER RN. ALL QUESTIONS AND CONCERNS ADDRESSED.
--- NOTE | 2019-10-07 19:30 | NUR ---
PT RECEIVED A/O X4, ABLE TO MAKE NEEDS KNOWN. MED-SURG, DENIES ANY CP/PRESSURE. PULSES PALPBLE, EDEMA TO BLE. BREATHING IS EVEN AND UNLABORED ON RA, NO RESP DISTRESS NOTED. ABD SOFT AND ROUND, DENIES N/V. VOIDS FREELY, URINAL AT BEDSIDE. GENERALIZED WEAKNESS, AMBULATORY WITH CANE, FALL PRECAUTIONS IN PLACE. PT ADMITTED FOR CELLULITIS TO RLE. ERYTHEMA AND WARTH TO RLE, SITE OUTLINED. PT DENIES HAVING ANY PAIN AT THIS TIME. IV TO LW, PATENT AND INTACT, SITE WNL. NO ACUTE DISTRESS NOTED. BED IN LOWEST SETTING, SIDE RAILS UP X2, CALL LIGHT WITHIN REACH. WILL CONT TO MONITOR.
[2019-10-07 20:18] VITALS: BP 100/48
--- NOTE | 2019-10-08 00:24 | NUR ---
PT RESTING IN BED WITH EYES CLOSED, BUT IS EASILY AROUSABLE. BREATHING IS EVEN AND UNLABORED, NO RESP DISTRESS NOTED. PT DENIES HAVING ANY PAIN AT THIS TIME. IV ABX INFUSING WELL, SITE WNL. NO ACUTE DISTRESS OBSERVED. CALL LIGHT WITHIN REACH. WILL CONT TO MONITOR.
[2019-10-08 05:43] VITALS: BP 120/69
--- NOTE | 2019-10-08 06:14 | NUR ---
PT SLEPT WELL THROUGHOUT THE EVENING. BREATHING IS EVEN AND UNLABORED, NO RESP DISTRESS NOTED. PT DENIES HAVING ANY PAIN AT THIS TIME. SL TO LW INTACT. NO ACUTE CHANGES ENCOUNTERED DURING SHIFT. ALL NEEDS MET AND ANTICIPATED. CALL LIGHT WITHIN REACH. WILL ENDORSE CARE TO AM NURSE.
[2019-10-08 06:35] LABS: CALCIUM 9.1 mg/dL (8.5-10.1); CARBON DIOXIDE 31.5 mmol/L (21-32); CHLORIDE SERUM 99 mmol/L (98-107); CREATININE SERUM 1.1 mg/dL (0.7-1.3); GFR1 > 60 mL/min; GLUCOSE SERUM 107 mg/dL (74-106); POTASSIUM SERUM 4.2 mmol/L (3.5-5.1); SODIUM SERUM 135 mmol/L (136-145)
[2019-10-08 06:44] LABS: BASOPHIL % 0.7 % (0-2); PLATELET COUNT 226 x10^3mcL (130-400)
--- NOTE | 2019-10-08 07:18 | NUR ---
PT IN NO ACUTE DISTRESS. CONTINUITY OF CARE ENDORSED TO AM NURSE. ALL QUESTIONS AND CONCERNS ADDRESSED.
[2019-10-08 07:22] LABS: RED CELL DISTRIBUTION WIDTH 15.1 % (11.5-14.5)
--- NOTE | 2019-10-08 07:30 | NUR ---
RECEIVED PT FROM CQ DEVELOPER RN. Mohsen/OX4. MED SURG. DENIES CHEST PAIN/PRESSURE. RESPIRATIONS EQUAL AND UNLABORED ON RA. DENIES SOB. PT DENIES ANY PAIN AT THIS TIME. PT C/O MILD TENDERNESS UPON TOUCH TO RIGHT CALF. WEAK PEDAL PULSES TO BLE, +1 PITTING EDEMA NOTED TO BLE. ERYTHEMA AND WARM TO TOUCH TO RLE, BLISTER NOTED TO RIGHT POSTERIOR ANKLE, DRAINING SEROUS DRAINAGE, DHRUV. CANE AT BEDSIDE. EMPTIED 320 ML OF CLEAR YELLOW URINE FROM URINAL. IV TO LW SALINE LOCKED. NO REDNESS OR SWELLING NOTED. WILL CONTINUE TO MONITOR. CALL LIGHT IN REACH. BED IN LOWEST POSITION.
[2019-10-08 07:50] VITALS: BP 140/47
--- NOTE | 2019-10-08 09:00 | NUR ---
PT SITTING UP IN CHAIR AT BEDSIDE. NO ACUTE RESP DISTRESS NOTED ON RA. PT DENIES ANY PAIN AT THIS TIME. GIVEN PO MEDS. TOLERATED WELL. IV TO LW FLUSHED WELL. IV ANTIBIOTICS INFUSING ORDERED. EMPTIED 120 ML OF CLEAR YELLOW URINE FROM URINAL. PT VERBALIZES HAVING DIARRHEA. PT REFUSING COLACE AT THIS TIME. WILL CONTINUE TO MONITOR. CALL LIGHT IN REACH. BED IN LOWEST POSITION.
--- NOTE | 2019-10-08 11:28 | NUR ---
PT SITTING UP IN CHAIR AT BEDSIDE. NO ACUTE RESP DISTRESS NOTED ON RA. PT DENIES ANY PAIN AT THIS TIME. IV FLUSHED WELL, SALINE LOCKED TO LW, NO REDNESS OR SWELLING NOTED. BLOOD SUGAR CHECKED WAS 119. NO COVERAGE NEEDED. WILL CONTINUE TO MONITOR. CALL LIGHT IN REACH. BED IN LOWEST POSITION.
[2019-10-08 12:22] VITALS: BP 132/48
[2019-10-08 16:12] VITALS: BP 112/40
--- NOTE | 2019-10-08 19:50 | NUR ---
RECEIVED REPORT FROM DAY SHIFT RN. PT SITTING ON THE CHAIR. AA&O X4. BREATHING EVEN AND UNLABORED ON ROOM AIR. NO C/O PAIN AT THIS TIME. NO DISTRESS NOTED. IV TO LAC, SALINE LOCKED. ERYTHEMA AND +1 EDEMA TO RLE. SAFETY MEASURES IN PLACE. BED IN LOWEST POSITION. SIDE RAILS UP X2. INSTRUCTED PT TO USE THE CALL LIGHT FOR ASSISTANCE. CALL LIGHT WITHIN REACH. CANE AT BEDSIDE.
[2019-10-08 20:42] VITALS: BP 104/50
--- NOTE | 2019-10-09 03:28 | NUR ---
PT RESTING WITH EYES CLOSED. BREATHING EVEN AND UNLABORED. NO FACIAL GRIMACING. CALL LIGHT WITHIN REACH. WILL CONITUE TO MONITOR.
[2019-10-09 05:13] VITALS: BP 113/63
[2019-10-09 06:37] LABS: BASOPHIL % 0.4 % (0-2); PLATELET COUNT 240 x10^3mcL (130-400)
[2019-10-09 06:58] LABS: RED CELL DISTRIBUTION WIDTH 14.7 % (11.5-14.5)
--- NOTE | 2019-10-09 07:00 | NUR ---
PT SLEPT IN INTERVALS. BREATHING EVEN AN UNLABORED. NO C/O PAIN. NO DISTRESS NOTED. SAFETY MEASURES MAINTAINED. ALL NEEDS ATTENDED TO. CALL LIGHT WITHIN ERACH. CANE AT BEDSIDE. WILL ENDORSE CARE TO DAY SHIFT RN.
[2019-10-09 07:04] LABS: CARBON DIOXIDE 31.9 mmol/L (21-32); CHLORIDE SERUM 102 mmol/L (98-107); CREATININE SERUM 1.2 mg/dL (0.7-1.3); GFR1 > 60 mL/min; GLUCOSE SERUM 108 mg/dL (74-106); POTASSIUM SERUM 4.2 mmol/L (3.5-5.1); SODIUM SERUM 138 mmol/L (136-145)
--- NOTE | 2019-10-09 08:00 | NUR ---
PATIENT RECEIVED SITTING IN RECLINER CHAIR. PATIENT RESTING AND WATCHING TV. NO SIGNS OF DISTRESS NOTED. WILL CONTINUE TO MONITOR. CALL LIGHT WITHIN REACH.
[2019-10-09 09:22] VITALS: BP 119/64
[2019-10-09] MEDS ORDERED: AMOXICILLIN875 MG PO (11:02)
[2019-10-09] MEDS ORDERED: VITAMIN C500 M6 PO (11:02)
[2019-10-09 11:55] VITALS: BP 130/64
[2019-10-09 12:08] VITALS: BP 99/55
--- NOTE | 2019-10-09 14:30 | NUR ---
PATIENT READY FOR DISCHARGE. EDUCATION MATERIALS PROVIDED FOR PATIENT REGARDING MEDICATION AND FOLLOW UP. NO SIGNS OF DISTRESS INDICATED. ALL PATIENT QUESTIONS ANSWERED. ALL BELONGINGS RETURNED TO PATIENT. WHEELCHAIR PROVIDED TO ASSIST PATIENT TO FRONT LOBBY WHERE HE IS SAFELY TRANSFERRED TO PERSONAL VEHICLE.
== END 2019-10-09 15:30 | disposition home or self-care (01) | DRG 603 ==
LOC: ED 17:43 → MU 22:11
PROVIDERS: Emergency Medicine; ADMIT General Practice
DX: L03.115 Cellulitis of right lower limb (principal); Z68.42 Body mass index [BMI] 45.0-49.9, adult; E87.1 Hypo-osmolality and hyponatremia; E11.65 Type 2 diabetes mellitus with hyperglycemia; H54.40 Blindness, one eye, unspecified eye; E78.5 Hyperlipidemia, unspecified; D64.9 Anemia, unspecified; Z79.4 Long term (current) use of insulin; Z79.84 Long term (current) use of oral hypoglycemic drugs; Z86.73 Personal history of transient ischemic attack (TIA), and cerebral infarction without residual deficits
CPT/HCPCS: 82962; G0378; J0696; J2405; J3370; J7040; J7060; Q0092

== ENCOUNTER 2020-09-01 18:10 | Emergency (ER) | payer OTHER ==
[~2020-09-01] VITALS: Ht 182.9 cm; Wt 144.2 kg
[~2020-09-01 18:10] MED LIST changes: +AMOXICILLIN875 MG PO; +METFORMIN HCL1000 MG PO; +VITAMIN C500 M6 PO
[2020-09-01 18:21] VITALS: Ht 182.9 cm; Wt 144.2 kg
[2020-09-01 19:43] VITALS: BP 140/62
== END 2020-09-01 19:44 | disposition home or self-care (01) ==
LOC: ED 18:10
DX: S39.012A Strain of muscle, fascia and tendon of lower back, initial encounter (principal); S46.912A Strain of unspecified muscle, fascia and tendon at shoulder and upper arm level, left arm, initial encounter; I10 Essential (primary) hypertension; E66.9 Obesity, unspecified; E11.9 Type 2 diabetes mellitus without complications; Z88.5 Allergy status to narcotic agent; Z86.73 Personal history of transient ischemic attack (TIA), and cerebral infarction without residual deficits; X58.XXXA Exposure to other specified factors, initial encounter; Y93.89 Activity, other specified; Y92.89 Other specified places as the place of occurrence of the external cause; Y99.8 Other external cause status
CPT/HCPCS: 82962; J1885